=== PATIENT | female | born 1975 | race Two or more races ===

== ENCOUNTER 2024-06-10 18:08 | Emergency (ER) | payer OTHER ==
[~2024-06-10] VITALS: Ht 160 cm; Wt 83.0 kg
[~2024-06-10 18:08] MED LIST: LEVSIN/SL0.125 MG SL; ULTRACET PO
[2024-06-10] MEDS ORDERED: ALBUTEROL2.5 MG/3 M IH (18:57)
[2024-06-10] MEDS ORDERED: ONDANSETRON HCL 2 MG/ML VIAL IV ONE (19:45)
[2024-06-10] MEDS ORDERED: LEVALBUTEROL HCL 1.25 MG/3 ML SOLUTION IH ONE ×2 (19:45→21:40)
[2024-06-10] MEDS ORDERED: IPRATROPIUM BROMIDE 0.5 MG/2.5 ML AMPUL.NEB IH ONE ×2 (19:45→21:41)
[2024-06-10] MEDS ORDERED: METHYLPREDNISOLONE SOD SUCC 125 MG VIAL IV ONE (19:45)
[2024-06-10] MEDS ORDERED: FAMOtidine 10 MG/ML (4ML VIAL) IV ONE (19:45)
[2024-06-10] MEDS ORDERED: ONDANSETRON HCL 2 MG/ML VIAL ONE (20:15)
[2024-06-10] MEDS ORDERED: METHYLPREDNISOLONE SOD SUCC 125 MG VIAL ONE (20:16)
[2024-06-10] MEDS ORDERED: FAMOTIDINE/PF 20 MG/2 ML VIAL ONE (20:16)
[2024-06-10 20:40] LABS: HEMATOCRIT 42.7 % (36.0-45.00); HEMOGLOBIN 14.4 g/dL (12.0-15.00); MEAN CELL VOLUME 88.5 fL (80.00-100.00); MEAN CORPUSCULAR HEMOGLOBIN 29.9 pg (27.00-32.0); MEAN CORPUSCULAR HGB CONC 33.8 g/dl (32.0-36.0); PLATELET COUNT 255 K/uL (150-450); RED BLOOD COUNT 4.82 M/uL (4.00-6.00); RED CELL DISTRIBUTION WIDTH 13.5 % (11.5-14.5)
[2024-06-10 21:07] LABS: ALBUMIN 3.6 gm/dL (3.4-5.0); BILIRUBIN TOTAL 0.24 mg/dL (0.3-1.2); CALCIUM 9.1 mg/dL (8.5-10.1); CREATININE SERUM 0.84 mg/dL (0.55-1.02); GFR 72.36; GLOBULINA 4.2 G/DL (2.4-3.5); POTASSIUM 3.93 mEq/L (3.5-5.1); TOTAL PROTEIN 7.8 gm/dL (6.4-8.2)
[2024-06-10] MEDS ORDERED: ZOFRAN8 MG PO (21:42)
[2024-06-10] MEDS ORDERED: PEPCID AC20 MG PO (21:42)
[2024-06-10] MEDS ORDERED: OSEL75CA PO (21:42)
[2024-06-10 21:57] LABS: URINE APPEARANCE Cloudy; URINE BILIRRUBIN Negative (NEGATIVE); URINE BLOOD Negative; URINE COLOR Yellow; URINE GLUCOSE Negative (NEGATIVE); URINE KETONE 15 (NEGATIVE); URINE LEUKOCYTE Negative; URINE NITRATE Negative; URINE PROTEIN 30 (NEGATIVE); URINE UROBILINOGEN 0.2 E.U./dl
[2024-06-10 22:01] LABS: URINE BACTERIA 1288.8 uL (0.0-1933); URINE EPITHELIAL CELLS 82.6 uL (0.0-38.8); URINE RBC 7.3 uL (0.0-20.8); URINE WBC 26.9 uL (0.0-23.2)
[2024-06-10 22:24] LABS: URINE CAST 1.17 uL (0.0-1.40)
== END 2024-06-10 22:07 | disposition home or self-care (01) ==
LOC: ER 18:11
PROVIDERS: General Practice
DX: J10.1 Influenza due to other identified influenza virus with other respiratory manifestations (principal); Z20.822 Contact with and (suspected) exposure to COVID-19; Z88.8 Allergy status to other drugs, medicaments and biological substances; Z87.09 Personal history of other diseases of the respiratory system

== ENCOUNTER 2024-06-12 03:54 | Emergency (ER) | payer OTHER ==
[~2024-06-12] VITALS: Ht 160 cm; Wt 81.6 kg
[~2024-06-12 03:54] MED LIST changes: +ALBUTEROL2.5 MG/3 M IH; +OSEL75CA PO; +PEPCID AC20 MG PO; +ZOFRAN8 MG PO
[2024-06-12] MEDS ORDERED: NEXIUM10 MG PO (04:09)
[2024-06-12] MEDS ORDERED: IPRATROPIUM/ALBUTEROL SULFATE 3 ML AMPUL.NEB IH STA (05:11)
[2024-06-12] MEDS ORDERED: METHYLPREDNISOLONE SOD SUCC 125 MG VIAL IV STA (05:12)
[2024-06-12] MEDS ORDERED: MAGNESIUM SULFATE IN WATER 4 GM/100 ML PIGGYBACK IV STA (05:14)
[2024-06-12] MEDS ORDERED: MAGNESIUM SULFATE 50% 5,000 MG/10 ML VIAL ONE (05:18)
[2024-06-12] MEDS ORDERED: METHYLPREDNISOLONE SOD SUCC 125 MG VIAL ONE (05:18)
[2024-06-12 05:37] LABS: HEMATOCRIT 42.6 % (36.0-45.00); HEMOGLOBIN 14.7 g/dL (12.0-15.00); MEAN CELL VOLUME 87.2 fL (80.00-100.00); MEAN CORPUSCULAR HGB CONC 34.4 g/dl (32.0-36.0); PLATELET COUNT 263 K/uL (150-450); RED BLOOD COUNT 4.89 M/uL (4.00-6.00); RED CELL DISTRIBUTION WIDTH 13.2 % (11.5-14.5)
[2024-06-12] MEDS ORDERED: IPRATROPIUM/ALBUTEROL SULFATE 3 ML AMPUL.NEB IH ONE ×2 (07:28→09:48)
[2024-06-12 07:44] LABS: ABG PH 7.475 (7.35-7.45); ABG PO2 73.6 mmHg (80-100); ABG pCO2 30.5 mmHg (35-45); BASE EXCESS -0.5 mmol/l; SaO2 95.7 %
[2024-06-12 07:45] LABS: Tco2 22.9 mmol/l; allen test SATISFACTORY; o2 21 %; puncture site RADIAL RIGHT
[2024-06-12] MEDS ORDERED: IPRAT-ALBUT 0.5-3 ML IH (10:34)
[2024-06-12] MEDS ORDERED: MEDROLPACK PO (10:34)
[2024-06-12] MEDS ORDERED: LEVALBUTER0.63 MG/3 IH (10:34)
== END 2024-06-12 10:39 | disposition home or self-care (01) ==
LOC: ER 03:57
DX: J45.998 Other asthma (principal); J11.1 Influenza due to unidentified influenza virus with other respiratory manifestations; Z88.8 Allergy status to other drugs, medicaments and biological substances